=== PATIENT | female | born 1965 | race Caucasian/White ===

== ENCOUNTER → 2017-01-19 | Outpatient (CLI) | payer MEDICARE, OTHER ==
[2017-01-19 14:27] LABS: ALBUMIN 4.5 GM/DL (3.2-5.2); CALCIUM LEVEL 9.7 MG/DL (8.5-10.1)
== END ==
LOC: M WUC 11:04
PROVIDERS: ATTEND Internal Medicine
DX: M81.0 Age-related osteoporosis without current pathological fracture (principal); R63.5 Abnormal weight gain; E55.9 Vitamin D deficiency, unspecified

== ENCOUNTER → 2017-01-24 | Outpatient (CLI) | payer MEDICARE, OTHER | LOC: M WUC 08:51 | PROVIDERS: ATTEND Internal Medicine | DX: M81.0 Age-related osteoporosis without current pathological fracture (principal); R63.5 Abnormal weight gain; E55.9 Vitamin D deficiency, unspecified ==

== ENCOUNTER → 2017-04-20 | Outpatient (CLI) | payer MEDICARE, OTHER ==
[2017-04-23 14:17] LABS: SJOGREN'S ANTI SS-A <0.2 AI (0.0-0.9); SJOGREN'S ANTI SS-B <0.2 AI (0.0-0.9)
== END ==
LOC: M WUC 14:36
PROVIDERS: ATTEND Physician Assistant
DX: H04.129 Dry eye syndrome of unspecified lacrimal gland (principal)

== ENCOUNTER → 2017-05-07 | Outpatient (CLI) | payer MEDICARE, OTHER ==
--- NOTE | 2017-05-07 17:54 | REP ---
Clinical: Cough . Comparison: None . Technique: PA and lateral. Findings: The mediastinum and cardiac silhouette are normal. The lung cheng are clear and without acute consolidation, effusion, or pneumothorax. The skeletal structures are intact and normal. Impression: 1. No acute cardiopulmonary process. Signed by Yanick Delarosa MD 05/07/2017 05:46 P
[2017-05-07 21:08] LABS: BASO # 0.1 K/mm3 (0.0-0.2); BASO % 1.2 % (0.0-1.0); EOS % 1.9 % (0.0-3.0); LARGE UNSTAINED CELL # 0.2 K/mm3 (0.0-0.4); LARGE UNSTAINED CELL % 2.7 % (0.0-4.0); LYMPH % 30.9 % (24.0-44.0); MEAN CORPUSCULAR HGB CONC 32.8 g/dl (32.0-36.5); MEAN CORPUSCULAR VOLUME 85.3 fl (80.0-96.0); MONO % 7.8 % (0.0-5.0); NEUTROPHILS % 55.5 % (36.0-66.0); PLATELET COUNT, AUTOMATED 359 k/mm3 (150-450); RED CELL DISTRIBUTION WIDTH 13.8 % (11.5-14.5)
[2017-05-07 21:09] LABS: WHITE BLOOD COUNT 6.1 K/mm3 (4.0-10.0)
[2017-05-07 21:11] LABS: LYMPH # 1.9 K/mm3 (1.5-4.5); MONO # 0.5 K/mm3 (0.0-0.8); NEUTROPHILS # 3.4 K/mm3 (1.8-7.7)
[2017-05-07 21:12] LABS: ADD MANUAL DIFFER NO; DIFF SLIDE NUMBER 269; EOS # 0.1 K/mm3 (0.0-0.50)
== END ==
LOC: M WUC 17:32
PROVIDERS: ATTEND Physician Assistant
DX: R05 Cough (principal)

== ENCOUNTER → 2021-03-08 | Outpatient (CLI) | payer MEDICARE, BC ==
--- NOTE | 2021-03-08 13:17 | REP ---
INDICATION: SYRINGOMYELIA AND SYRINGOBULBIA. COMPARISON: Comparison MRI cervical spine study August 14, 2014.. TECHNIQUE: Sagittal and axial T1 and T2-weighted scans are acquired in the usual fashion with and without fat saturation. Sequences include spin echo, turbo spin-echo, and STIR imaging sequences. FINDINGS: Cortical and medullary bone signal intensity are normal. Alignment is normal. Vertebral body heights are intact. Craniocervical junction is unremarkable. 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 It appears unchanged. On axial images, the cavity is centrally located in the spinal cord and measures a maximum of 3.7 x 3.5 cm in right to left by anteroposterior dimension respectively. There is no observable cord enlargement. No observable cord edema is seen outside of the hydromyelia cavity. Axial and sagittal images show no focal cervical disc protrusion or other cause of cord compression. No neural foraminal narrowing is appreciated. 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 Unchanged from comparison study August 14, 2014 <Electronically signed by Wilman Casey > 03/08/21 [id number]
--- NOTE | 2021-03-08 13:41 | REP ---
INDICATION: SYRINGOMYELIA AND SYRINGOBULBIA. COMPARISON: Comparison MRI study is from May 27, 2008.. TECHNIQUE: Axial and sagittal imaging planes are utilized for T1 and T2-weighted scans. Sequences include spin-echo, fast spin echo, FLAIR, and diffusion weighted sequences. FINDINGS: No bony calvarial lesion is seen. Craniocervical junction and upper cervical cord are normal in appearance. There is no MR evidence of significant paranasal sinus disease. No intraorbital abnormality is seen. The lateral, third, and fourth ventricles are normal in size and position. Warner-white differentiation pattern is intact above and below the tentorium. There is no evidence of intracranial hemorrhage. No mass, infarction, extra-axial fluid collection or midline shift is seen. There are several subcortical and periventricular white matter foci of T2 hyperintensity on FLAIR and turbo spin echo T2 weighted scans consistent with mild small vessel changes. IMPRESSION: Mild small vessel changes. No acute intracranial abnormality.. <Electronically signed by Wilman Casey > 03/08/21 [id number]
== END ==
LOC: M PLARAD 10:34
PROVIDERS: ATTEND Emergency Medicine
DX: G95.0 Syringomyelia and syringobulbia (principal)